=== PATIENT | female | born 1955 | race Caucasian/White ===

== ENCOUNTER 2023-06-02 17:29 | Emergency (ER) | payer OTHER ==
[~2023-06-02] VITALS: Ht 162.6 cm; Wt 63.6 kg
[2023-06-02 17:33] VITALS: TEMP 98.6
[2023-06-02] MEDS ORDERED: HYDROCODONE/ACETAMINOPHEN 5-325 MG TABLET PO ONE (19:45)
[2023-06-02 20:00] VITALS: BP 134/81; PULSE 81; RESP 17
[2023-06-02] MEDS ORDERED: BUPIVACAINE HCL/PF 0.5% 10 ML VIAL ID ONE (20:00)
[2023-06-02] MEDS ORDERED: DOXY-354 PO (21:22)
[2023-06-02] MEDS ORDERED: DOXYCYCLINE HYCLATE 100 MG TABLET PO ONE (21:30)
[2023-06-03] MEDS ORDERED: LINA290C PO (10:44)
[2023-06-03] MEDS ORDERED: DOCU-412 PO (10:44)
[2023-06-03] MEDS ORDERED: SIMV10TA97 PO (10:44)
[2023-06-03] MEDS ORDERED: ESOM40CA54 PO (10:44)
== END 2023-06-02 21:54 | disposition home or self-care (01) ==
LOC: EMS 17:30
DX: S91.212A Laceration without foreign body of left great toe with damage to nail, initial encounter (principal); M20.62 Acquired deformities of toe(s), unspecified, left foot; E11.9 Type 2 diabetes mellitus without complications; I10 Essential (primary) hypertension; Z88.0 Allergy status to penicillin; W31.89XA Contact with other specified machinery, initial encounter; Y93.89 Activity, other specified; Y92.89 Other specified places as the place of occurrence of the external cause; Y99.8 Other external cause status
CPT/HCPCS: 99283; 82962; 73620; 12001; J3490

== ENCOUNTER 2023-06-03 10:33 | Emergency (ER) | payer OTHER ==
[~2023-06-03] VITALS: Ht 162.6 cm; Wt 70.5 kg
[~2023-06-03 10:33] MED LIST: DOXY-354 PO
[2023-06-03 10:40] VITALS: TEMP 98.4
[2023-06-03] MEDS ORDERED: DOCU-412 PO (10:44)
[2023-06-03] MEDS ORDERED: ESOM40CA54 PO (10:44)
[2023-06-03] MEDS ORDERED: LINA290C PO (10:44)
[2023-06-03] MEDS ORDERED: SIMV10TA97 PO (10:44)
[2023-06-03] MEDS ORDERED: DOXYCYCLINE HYCLATE 100 MG TABLET PO ONE (12:00)
[2023-06-03] MEDS ORDERED: HYDROCODONE/ACETAMINOPHEN 5-325 MG TABLET PO ONE (12:00)
[2023-06-03 14:42] VITALS: BP 131/75; PULSE 79; RESP 18
== END 2023-06-03 14:42 | disposition home or self-care (01) ==
LOC: EMS 10:41
DX: S99.922D Unspecified injury of left foot, subsequent encounter (principal); M20.62 Acquired deformities of toe(s), unspecified, left foot; E11.9 Type 2 diabetes mellitus without complications; E78.00 Pure hypercholesterolemia, unspecified; Z88.0 Allergy status to penicillin; X58.XXXD Exposure to other specified factors, subsequent encounter
CPT/HCPCS: 82962; 99283